=== PATIENT | female | born 1965 | race African-American/Black ===

== ENCOUNTER 2022-09-27 18:19 | Emergency (ER) | payer MEDICAID, OTHER ==
[~2022-09-27] VITALS: Ht 170.2 cm; Wt 86.3 kg
[2022-09-27] MEDS ORDERED: ONDANSETRON HCL 4 MG/2 ML VIAL IV ONE (18:30)
[2022-09-27] MEDS ORDERED: SODIUM CHLORIDE 0.9% 500 ML IV ONE (18:30)
[2022-09-27] MEDS ORDERED: HYDROmorphone HCL 2 MG/ML VL/or syr IV ONE (18:30)
[2022-09-27 18:42] VITALS: BP 121/89
[2022-09-27 19:20] LABS: Basophils # (auto) 0 10 ^3/uL (0-0.2); Basophils % (auto) 0.2 % (0.0-2.0); Eosinophils # (auto) 0.1 10 ^3/uL (0-0.8); Eosinophils % (auto) 0.9 % (0.0-7.0); Hematocrit 42.2 % (36.0-46.0); Hemoglobin 13.9 g/dL (12.2-16.2); Lymphocytes # (auto) 2.6 10 ^3/uL (0.4-5.4); Lymphocytes % (auto) 38.5 % (10.0-50.0); Mean Corpuscular Hemoglobin 28.3 pg (28.0-32.0); Mean Corpuscular Hgb Conc. 32.8 g/dL (32.0-36.0); Mean Corpuscular Volume 86.4 fL (80.0-100.0); Monocytes # (auto) 0.3 10 ^3/uL (0-1.3); Monocytes % (auto) 4.5 % (0.0-12.0); Neutrophils # (auto) 3.7 10 ^3/uL (1.6-8.6); Neutrophils % (auto) 55.9 % (37.0-80.0); Nucleated Red Blood Cells % 0.1 %; Red Blood Cells 4.89 10^6/uL (4.0-5.20); Red Cell Distribution Width 13.8 % (11.8-14.3); White Blood Cell 6.7 10^3/uL (4.4-10.8)
[2022-09-27 20:49] LABS: Albumin 3.6 g/dL (3.4-5.0); Anion Gap 6 (5-15); BUN/Creatinine Ratio 13.1; Blood Urea Nitrogen 11 mg/dL (7-18); Calcium 8.9 mg/dL (8.5-10.1); Carbon Dioxide 26 mmol/L (21-32); Chloride 111 mmol/L (98-107); GFR African American 90 mL/min; GFR Non-African American 75 mL/min; Glucose 81 mg/dL (74-106); Potassium 4.1 mmol/L (3.5-5.1); Sodium 143 mmol/L (136-145)
[2022-09-27 20:52] LABS: Alanine Aminotransferase 30 U/L (13-56); Alkaline Phosphatase 73 U/L (45-117); Aspartate Aminotransferase 27 U/L (15-37); Bilirubin, Total 0.3 mg/dL (0.2-1.0); Total Protein 7.5 g/dL (6.4-8.2)
[2022-09-27] MEDS ORDERED: HYDR-4902 PO (21:40)
== END 2022-09-27 21:42 | disposition home or self-care (01) ==
LOC: EDBD 18:19 → ER 18:22
DX: S33.5XXA Sprain of ligaments of lumbar spine, initial encounter (principal); M79.10 Myalgia, unspecified site; Z79.899 Other long term (current) drug therapy; Z88.5 Allergy status to narcotic agent; W18.39XA Other fall on same level, initial encounter; Y93.89 Activity, other specified; Y92.89 Other specified places as the place of occurrence of the external cause; Y99.8 Other external cause status
CPT/HCPCS: 36415; 72131; 74176; 80053; 85025; 93005

== ENCOUNTER 2024-03-07 04:08 | Emergency (ER) | payer MEDICAID ==
[~2024-03-07] VITALS: Ht 170.2 cm; Wt 66.0 kg
[~2024-03-07 04:08] MED LIST: HYDR-4902 PO
[2024-03-07] MEDS: KETOROLAC TROMETH 60MG/2ML VIAL IM ONE (05:13)
[2024-03-07 05:16] VITALS: BP 132/74; PULSE 65; RESP 14; TEMP 98; O2SAT 100
[2024-03-07] MEDS: IBUPROFEN 800 MG TAB PO ONE (05:16)
== END 2024-03-07 05:16 | disposition home or self-care (01) ==
LOC: ER 04:08
DX: R20.2 Paresthesia of skin (principal); Z79.899 Other long term (current) drug therapy; Z88.5 Allergy status to narcotic agent
CPT/HCPCS: J1885

== ENCOUNTER 2024-04-25 19:55 | Emergency (ER) | payer MEDICAID ==
[~2024-04-25] VITALS: Ht 170.2 cm; Wt 63.0 kg
[2024-04-25 20:11] VITALS: BP 132/49; PULSE 66; RESP 16; O2SAT 97
[2024-04-25] MEDS ORDERED: IBUP-1456 PO (23:41)
== END 2024-04-25 23:56 | disposition home or self-care (01) ==
LOC: ER 19:55
DX: M77.01 Medial epicondylitis, right elbow (principal); F41.9 Anxiety disorder, unspecified; F32.A Depression, unspecified; Z88.5 Allergy status to narcotic agent

== ENCOUNTER 2024-12-16 01:44 | Emergency (ER) | payer MEDICAID, OTHER ==
[~2024-12-16] VITALS: Ht 170.2 cm; Wt 59.3 kg
[~2024-12-16 01:44] MED LIST changes: +IBUP-1456 PO
[2024-12-16 02:05] VITALS: BP 135/84; PULSE 85; RESP 20; TEMP 97.3; O2SAT 99
--- NOTE | 2024-12-16 03:34 | ED.PDOC ---
Psychiatric HPI Comments PATIENT STATES SHE CANNOT SLEEP, LEFT HER PRESCRIBED AMBIEN IN [place]. P ATIENT STATES SHE CANNOT SLEEP, IS TRYING TO GET ONE PILL TO HELP HER SLEEP TONIGHT. PATIENT STATES HAS BEEN ON IT FOR GREATER THAN 5 YEARS. MEDICATIONS IN THE PAST WITH FAILURE, NOTES PSYCHOTHERAPY, MEDITATION, VIBRATION SOUNDS, STATES ALL FAILED. DENIES ETOH, SI, OR SA. Chief Complaint: Anxiety Time Seen by MD: 02:34 Reviewed Notes: Nurses Notes, Medications, Allergies Information Source: Patient Mode of Arrival: Ambulatory Past Medical History PAST MEDICAL HISTORY: Anxiety, Depression Surgical History: Denies all surgeries HYDRAULIC MINER History: Denies all HYDRAULIC MINER Hx Family History Family History: Unknown Social History Smoker: Non-Smoker Alcohol: Denies ETOH Use Drugs: Denies Drug Use Lives In: Home Constitutional: denies: chills, diaphoresis, fatigue, fever, malaise, sweats, weakness, others EENTM: denies: blurred vision, double vision, ear bleeding, ear discharge, ear drainage, ear pain, ear ringing, eye pain, eye redness, hearing loss, mouth pain, mouth swelling, nasal discharge, nose bleeding, nose congestion, nose pain, photophobia, tearing, throat pain, throat swelling, voice changes, others Respiratory: denies: cough, hemoptysis, orthopnea, SOB at rest, shortness of breath, SOB with excertion, stridor, wheezing, others Cardiovascular: denies: chest pain, dizzy spells, diaphoresis, Dyspnea on exertion, edema, irregular heart beat, left arm pain, lightheadedness, palpitations, PND, syncope, others Gastrointestinal: denies: abdomen distended, abdominal pain, blood streaked bowels, constipated, diarrhea, dysphagia, difficulty swallowing, hematemesis, melena, nausea, poor appetite, poor fluid intake, rectal bleeding, rectal pain, vomiting, others Genitourinary: denies: abnormal vagina bleeding, burning, dyspareunia, dysuria, flank pain, frequency, hematuria, incontinence, pain, , vagina discharge, urgency, others Neurological: denies: dizziness, fainting, headache, left sided numbness, left sided weakness, numbness, paresthesia, pre-existing deficit, right sided numbness, right sided weakness, seizure, speech problems, tingling, tremors, weakness, others Musculoskeletal: denies: back pain, gout, joint pain, joint swelling, muscle pain, muscle stiffness, neck pain, others Integumetry: denies: bruises, change in color, change in hair/nails, dryness, laceration, lesions, lumps, rash, wounds, others Allergic/Immunocompromised: denies: Difficulty Healing, Frequent Infections, Hives, Itching, others Hematologic/Lymphatic: denies: anemia, blood clots, easy bleeding, easy bruising, swollen glands, others Endocrine: denies: excessive hunger, excessive sweating, excessive thirst, excessive urination, flushing, intolerance to cold, intolerance to heat, unexplained weight gain, unexplained weight loss, others Psychiatric: reports: others (INSOMNIA); denies: anxiety, bipolar disorder, depression, hopeless, panic disorder, schizophrenia, sleepless, suicidal Physical Exam General Appearance: No Apparent Distress, Normal HEENT: Pharynx Normal Neck: Full Range of Motion, Non-Tender Respiratory: Lungs Clear, No Respiratory Distress, Normal Breath Sounds Cardiovascular: No Edema, No JVD, No Murmur, No Gallop, Normal Peripheral Pulses, Regular Rate/Rhythm Breast Exam: Deferred Gastrointestinal: No Organomegaly, Non Tender, No Pulsatile Mass, Normal Bowel Sounds, Soft Genitalia: Deferred Pelvic: Deferred Rectal: Deferred Extremities: Normal capillary refill, Normal inspection, Normal range of motion, Non-tender, No pedal edema Musculoskeletal : Apperance: Normal Neurologic: Alert, division leader II-XII nml as Tested, No Motor Deficits, Normal Affect, Normal Mood, No Sensory Deficits Cerebellar Function: Normal Reflexes: Normal Skin: Dry, Normal Color, Warm Lymphatic: No Adenopathy Was a procedure done? Was a procedure done?: No Psych Differential Dx Psych. Differential Dx: Anxiety OD Differential Dx: Depression Intoxication Differential Dx: Substance Abuse Disorder X-Ray, Labs, Meds, VS Vital Signs Date Time Temp Pulse Resp B/P (MAP) Pulse Ox O2 Delivery O2 Flow Rate FiO2 12/16/24 02:05 97.3 85 20 135/84 (101) 99 97.3 12/16/24 02:05 97.3 85 20 135/84 (101) 99 12/16/24 02:05 Room Air X-Ray, Labs, Meds, VS Comment PATIENT NOT DRIVING PATIENT WITH SIGNIFICANT OTHER WHO WILL BE DRIVING PATIENT HOME. 10 MG OF AMBIEN. LIVES NO ALCOHOL INTO GO STRAIGHT HOME.FOLLOW-UP WITH PCP IN 1 TO 2 DAYS. TAKE MEDICATIONS PRESCRIBED. RETURN TO ED FOR ANY NEW OR WORSENING SYMPTOMS. Time of 1ST Reevaluation: 03:45 Reevaluation 1ST: Unchanged Patient Education/Counseling: Diagnosis, Treatment, Prognosis, Need For Follow Up Family Education/Counseling: Diagnosis, Treatment, Prognosis, Need For Follow Up Departure 1 Departure Time of Disposition: 03:40 Impression: Primary Impression: Insomnia Qualified Codes: F51.01 - Primary insomnia Disposition: 01 HOME / SELF CARE / HOMELESS Condition: Stable Discharged With: Significant Other Critical Care Note Critical Care Time?: No Stability Stability form required: FAVIAN Landaverde Dec 16, 2024 03:34
[2024-12-16] MEDS: ZOLPIDEM TARTRATE 5 MG TAB PO ONE (03:36)
== END 2024-12-16 03:50 | disposition home or self-care (01) ==
LOC: ER 01:44
DX: G47.00 Insomnia, unspecified (principal); F41.9 Anxiety disorder, unspecified